=== PATIENT | female | born 1950 ===

== ENCOUNTER 2025-05-01 07:45 | Inpatient (IN) | payer OTHER ==
[~2025-05-01] VITALS: Ht 152.4 cm; Wt 95.7 kg
[2025-05-01] MEDS ORDERED: SYNTHROID50 MCG PO (09:14)
[2025-05-01] MEDS ORDERED: TRULICITY0.75 MG/0. (09:14)
[2025-05-01] MEDS ORDERED: GLIPIZIDE XL10 MG PO (09:14)
[2025-05-01] MEDS ORDERED: METFORMIN HCL1000 M2 PO (09:14)
[2025-05-01] MEDS ORDERED: PROAIR RESPICL90 MCG IH (09:15)
[2025-05-01] MEDS ORDERED: SINGULAIR10 MG PO (09:15)
[2025-05-01] MEDS ORDERED: CLARITIN10 M1 PO (09:15)
[2025-05-01 09:17] VITALS: BP 123/79
[2025-05-01 10:02] LABS: BASO % 0.6 % (0.1-1.2); EOS # 0.11 (0.04-0.54); EOS % 1.4 % (0.7-7.0); LYMPH # 3.02 (1.18-3.74); LYMPH % 38.3 % (19.3-53.1); MEAN PLATELET VOLUME 10.70 fl (9.4-12.4); MONO # 0.63 (0.24-0.82); MONO % 8.0 % (4.7-12.5); NEUT # 4.05 (1.56-6.13); NEUT % 51.3 % (34.0-71.1); RED CELL DISTRIBUTION WIDTH 13.2 % (11.6-14.4)
[2025-05-01 10:18] LABS: URINE APPEARANCE Clear; URINE BILIRRUBIN Negative (NEGATIVE); URINE COLOR Yellow; URINE GLUCOSE Negative (NEGATIVE); URINE KETONE Negative (NEGATIVE); URINE LEUKOCYTE Trace; URINE NITRATE Negative; URINE PROTEIN Negative (NEGATIVE); URINE UROBILINOGEN 0.2 E.U./dl
[2025-05-01 10:25] LABS: URINE BACTERIA 1304.2 uL (0.0-1933); URINE EPITHELIAL CELLS 36.2 uL (0.0-38.8); URINE RBC 13.0 uL (0.0-20.8); URINE WBC 19.6 uL (0.0-23.2)
[2025-05-01 10:34] LABS: INR 1.0
[2025-05-01 10:38] LABS: URINE BLOOD TRACES; URINE CAST 0.58 uL (0.0-1.40)
[2025-05-01 10:39] LABS: CHOL HDL RATIO 3.5 (0-5.0); HDL 41.0 mg/dl (40-60); LDL 70.0 mg/dl (0-130); VLDL 32.0 (0-39)
[2025-05-01 10:40] LABS: ALT/SGPT 17.0 U/L (12-78); AST/SGOT 16.0 U/L (15-37); BILIRUBIN TOTAL 0.58 mg/dL (0.3-1.2); BUN CREA RATIO 29.0 (7.0-25.0); CREATININE SERUM 0.56 mg/dL (0.55-1.02); GFR 106.11; GLOBULINA 3.6 G/DL (2.4-3.5); GLUCOSE FASTING 138.0 mg/dL (65-100); OSMOLALITY SERUM 286.0 MOSM/KG (275-295)
[2025-05-08] MEDS ORDERED: KETOROLAC TROMETHAMINE 60 MG VIAL IM ONE (06:29)
[2025-05-08] MEDS ORDERED: VANCOMYCIN HCL 1,000 MG VIAL ONE (06:30)
[2025-05-08] MEDS ORDERED: BUPIVACAINE HCL/MPF 0.5% 30ML VIAL ONE (06:30)
[2025-05-08] MEDS ORDERED: LIDOCAINE HCL 1%/EPINEPHRINE 20ML VIAL IJ ONE (06:30)
[2025-05-08] MEDS ORDERED: TRANEXAMIC ACID 100MG/1ML (1000MG) AMPUL ONE (06:57)
[2025-05-08] MEDS ORDERED: CEFAZOLIN SODIUM 1,000 MG VIAL ONE ×2 (06:57→07:06)
[2025-05-08] MEDS ORDERED: MORPHINE SULFATE 4 MG/ML VIAL IV ONE (07:00)
[2025-05-08] MEDS ORDERED: SODIUM CHLORIDE 0.45 % 1,000 ML IV SCH (09:30)
[2025-05-08] MEDS ORDERED: ONDANSETRON HCL 2 MG/ML VIAL IV PRN (09:30)
[2025-05-08] MEDS ORDERED: MORPHINE SULFATE 4 MG/ML CARTRIDGE IV PRN (09:30)
[2025-05-08] MEDS ORDERED: OxyCODONE HCL 5 MG TABLET (ROXICODONE) PO PRN (09:30)
[2025-05-08] MEDS ORDERED: ACETAMINOPHEN 500 MG GEL..CAP PO SCH (12:00)
[2025-05-08] MEDS ORDERED: ACETAMINOPHEN 500 MG GEL..CAP PO ONE (12:18)
[2025-05-08] MEDS ORDERED: INSULIN LISPRO 1,000 UNIT/10 ML UNITS SUBCUTANEO PRN (16:15)
[2025-05-08] MEDS ORDERED: DEXTROSE 50 % IN WATER 0.5 G/ML DISP.SYRIN IV PRN (16:15)
[2025-05-08 16:50] VITALS: BP 121/67; O2SAT 95
[2025-05-08] MEDS ORDERED: CEFAZOLIN SODIUM 1,000 MG VIAL IV SCH (17:00)
[2025-05-08] MEDS ORDERED: GABAPENTIN 300 MG CAPSULE PO SCH (17:00)
[2025-05-09 00:30] VITALS: BP 116/74; O2SAT 98
[2025-05-09] MEDS ORDERED: LEVOTHYROXINE SODIUM 50 MCG TABLET PO SCH (06:00)
[2025-05-09 07:35] LABS: BASO % 0.4 % (0.1-1.2); EOS # 0.09 (0.04-0.54); EOS % 0.9 % (0.7-7.0); LYMPH # 2.59 (1.18-3.74); LYMPH % 26.8 % (19.3-53.1); MEAN PLATELET VOLUME 11.70 fl (9.4-12.4); MONO # 0.89 (0.24-0.82); MONO % 9.2 % (4.7-12.5); NEUT # 6.04 (1.56-6.13); NEUT % 62.4 % (34.0-71.1); RED CELL DISTRIBUTION WIDTH 13.4 % (11.6-14.4)
[2025-05-09 08:32] VITALS: BP 132/59; O2SAT 95
[2025-05-09] MEDS ORDERED: SENNOSIDES 1 TAB TABLET PO SCH (09:00)
[2025-05-09] MEDS ORDERED: APIXABAN 2.5 MG TABLET PO SCH (09:00)
[2025-05-09] MEDS ORDERED: PERCOCET 5-3251 EACH PO (09:03)
[2025-05-09] MEDS ORDERED: DUI500 PO (09:03)
[2025-05-09] MEDS ORDERED: ELIQUIS2.5 MG PO (09:03)
[2025-05-09 15:54] VITALS: BP 147/82; O2SAT 96
[2025-05-10 02:04] VITALS: BP 124/78; O2SAT 95
[2025-05-10 06:43] LABS: BASO % 0.4 % (0.1-1.2); EOS # 0.13 (0.04-0.54); EOS % 1.2 % (0.7-7.0); LYMPH # 3.27 (1.18-3.74); LYMPH % 29.1 % (19.3-53.1); MEAN PLATELET VOLUME 11.30 fl (9.4-12.4); MONO # 1.27 (0.24-0.82); MONO % 11.3 % (4.7-12.5); NEUT # 6.47 (1.56-6.13); NEUT % 57.6 % (34.0-71.1); RED CELL DISTRIBUTION WIDTH 13.1 % (11.6-14.4)
[2025-05-10 08:00] VITALS: BP 108/68; O2SAT 95
[2025-05-10] MEDS ORDERED: IRON FUM,PS/FOLIC ACID/VITC/B3 1 CAP CAPSULE PO SCH (09:00)
[2025-05-10 16:00] VITALS: BP 129/65; O2SAT 95
== END 2025-05-10 18:10 | DRG 470 ==
LOC: O/R 05-08 06:00 → SURH 05-08 06:00 → EDBD 05-08 07:45 → SURH 05-08 07:45
PROVIDERS: ADMIT Orthopaedic Surgery; ATTEND Orthopaedic Surgery
PROC: 0MNP0ZZ Release Left Knee Bursa and Ligament, Open Approach (ICD-10-PCS; 2025-05-08)
PROC: 0SUD07Z Supplement Left Knee Joint with Autologous Tissue Substitute, Open Approach (ICD-10-PCS; 2025-05-08)
PROC: 0SRD0J9 Replacement of Left Knee Joint with Synthetic Substitute, Cemented, Open Approach (ICD-10-PCS; principal; 2025-05-08 11:00)
DX: M17.12 Unilateral primary osteoarthritis, left knee (principal); M22.12 Recurrent subluxation of patella, left knee; E11.9 Type 2 diabetes mellitus without complications; Z79.4 Long term (current) use of insulin